=== PATIENT | female | born 2000 | race Caucasian/White ===

== ENCOUNTER 2023-04-16 05:30 | Inpatient (IN) ==
--- NOTE | 2023-03-26 08:54 | Anesthesiology Consultation ---
Date of Service March 26, 2023 Assessment & Plan (1) Encounter for pre-operative examination: - Per wool sacker on 03/26/2023: No known infectious disease contacts, current infectious disease symptoms in past 10 days or COVID positive test result in the past 90 days. Chart Review Chart Review: entry level sales representative initiated History Surgery Operation Date: 04/16/23 07:30 Proposed Procedures p Section (Delivery of Baby Through Abdominal Incision) - Edith Dill MD, FACOG s with Bilateral Tubal Ligation - Edith Dill MD, FACOG Height/Weight Height: 5 ft 3 in Weight: 66.224 kg Allergies Allergy/AdvReac Type Severity Reaction Status Date / Time adhesive tape Allergy Unknown skin Verified 03/26/23 08:39 irritation narcotics AdvReac Unknown N/V Uncoded 03/26/23 08:33 Medications Home Medications Medication Instructions Recorded Confirmed Last Taken cholecalciferol (vitamin D3) 125 125 mcg PO DAILY 04/17/20 03/26/23 Unknown mcg (5,000 unit) tablet cyanocobalamin (vitamin B-12) 500 500 mcg PO DAILY #30 tabs 01/17/22 03/26/23 Unknown mcg tablet prenat.vits,kiera,[id number] 1 tab PO DAILY 09/24/22 03/26/23 Unknown fluticasone propionate 50 1 spray intranasal DAILY PRN 01/01/23 03/26/23 Unknown mcg/actuation nasal Allergy Symptoms spray,suspension (Flonase Allergy Relief) breast pump #1 ea 02/10/23 03/25/23 Unknown breast pump #1 ea 02/16/23 03/25/23 Unknown breast pump #1 ea 02/20/23 03/25/23 Unknown aspirin 81 mg capsule 81 mg PO QAM 03/26/23 03/26/23 Unknown Past Medical History Medical History Goiter diffuse History of COVID-2020- loss of taste and smell; resolved History of lumbar puncture History of palpitations > 6 mos ago; thyroid levels were elevated; resolved History of pre-eclampsia Hx of Graves' disease Learning disability Migraine without aura Multiple sclerosis Nausea and vomiting after administration of anesthetic agent n/v after epidural w/ last Past Family History Family History Aunt Lupus Grandmother (Maternal) Kidney disease Grandfather (Maternal) Kidney disease Denies family history of Ovarian cancer Breast cancer Colorectal cancer Past Surgical History Surgical History History of tonsillectomy and adenoidectomy S/P section Social History Smoking Status: Never smoker Do You Dip or Chew Tobacco: No Hx Alcohol Use: No Hx Substance Use: No substance use type: does not use Lab Results Anesthesia Preop Results Results Anesthesia Widget: Hgb 11.6 g/dl (12.0-16.0) L 01/29/23 Hct 33.2 % (37.0-47.0) L 01/29/23 TSH 0.633 uIu/ml (0.300-4.500) 03/17/23 Free T4 1.05 ng/dl (0.61-1.60) 03/17/23 Urine Color Yellow 01/29/23 Urine Appearance Cloudy (Clear) A 01/29/23 Urine pH 8.0 (4.5-7.5) H 01/29/23 Urine Specific [place] 1.009 (1.000-1.030) 01/29/23 Urine Protein Negative (Negative) 01/29/23 Urine Glucose (UA) Negative (Negative) 01/29/23 Urine Ketones Negative (Negative) 01/29/23 Urine Blood Trace (Negative) H 01/29/23 Urine Nitrite Negative (Negative) 01/29/23 Urine Bilirubin Negative (Negative) 01/29/23 Urine Urobilinogen Negative (Negative) 01/29/23 Urine Leukocyte Esterase Negative (Negative) 01/29/23 Urine WBC (Auto) 1-5 /hpf (0-5) 01/29/23 Urine RBC (Auto) 5-10 /hpf (0-4) H 01/29/23 Urine Hyaline Casts (Auto) 0 /lpf (0-5) 01/29/23 Urine Epithelial Cells (Auto) >30 /lpf (0-5) H 01/29/23 Urine Bacteria (Auto) Negative (Negative) 01/29/23
--- NOTE | 2023-04-15 09:40 | History & Physical Report ---
Date of Service April 15, 2023 Assessment & Plan (1) 39 weeks gestation of : (2) Previous delivery affecting , antepartum: (3) Encounter for sterilization: Plan Will admit for planned c/s on 04/16/23. Consent reviewed and signed. Reviewed tubal and risks, specifically regret and desires to proceed. plan labs in am of admission. History of Present Illness Chief Complaint: planned c/s and tubal Primary Care Provider: Elizabeth Dumont 22yo at 39wks ega on day of admission for planned repeat c/s and desires tubal. Denies rom, vb. +FM. No ctx. Has wanted to have tubal and identifies her medical problems as issue for further pregnancies.Sure she wants to proceed and aware of regret at risk, wants distal salpingectomies for cancer risk reduction as form of tubal. PNC c/b 1. MS 2. Prior c/s 3. Graves disease PNL rh pos, ri, gbs neg Allergies Allergy/AdvReac Type Severity Reaction Status Date / Time adhesive tape Allergy Unknown skin Verified 04/15/23 08:55 irritation narcotics AdvReac Unknown N/V Uncoded 04/15/23 08:55 Home Medications Medication Instructions Recorded Confirmed Type cholecalciferol (vitamin D3) 125 125 mcg PO DAILY 04/17/20 04/15/23 History mcg (5,000 unit) tablet cyanocobalamin (vitamin B-12) 500 500 mcg PO DAILY #30 tabs 01/17/22 04/15/23 Rx mcg tablet prenat.vits,kiera,[id number]-[id number]-[id number] 1 tab PO DAILY 09/24/22 04/15/23 History fluticasone propionate 50 1 spray intranasal DAILY PRN 01/01/23 04/15/23 History mcg/actuation nasal Allergy Symptoms spray,suspension (Flonase Allergy Relief) breast pump #1 ea 02/16/23 04/15/23 Rx aspirin 81 mg capsule 81 mg PO QAM 03/26/23 04/15/23 History Patient History Medical History Goiter diffuse History of COVID-19 History of lumbar puncture History of palpitations History of pre-eclampsia Hx of Graves' disease Learning disability Migraine without aura Multiple sclerosis Nausea and vomiting after administration of anesthetic agent Surgical History History of tonsillectomy and adenoidectomy S/P section Family History Aunt Lupus Grandmother (Maternal) Kidney disease Grandfather (Maternal) Kidney disease Denies family history of Ovarian cancer Breast cancer Colorectal cancer Social History Smoking Status: Never smoker Second Hand Exposure: Yes (boyfriend smokes); Do You Dip or Chew Tobacco: No; Hx Alcohol Use: No Hx Substance Use: No Preferred Language: Occitan Communication Ability: Effective 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 current occupational status: employed current occupation: [employer] Feels Safe at Home: Yes Assistive Devices: None Review of Systems as per Subjective / HPI Physical Exam Constitutional: WD/WN, vitals as above Respiratory: normal respiratory effort, lungs clear to auscultation Cardiovascular: Rate/Rhythm: regular rate and regular rhythm Gastrointestinal (Abdomen): soft gravid nt fhts 135 Musculoskeletal: no edema nontender calves Neurologic: grossly normal Psychiatric: A+Ox3, euthymic affect Coding Level of Care Code None Diagnoses 39 weeks gestation of Z3A.39 Previous delivery affecting , antepartum O34.219 Encounter for sterilization Z30.2
[2023-04-16] MEDS ORDERED: LACTATED RINGER'S 1,000 ML IV SCH ×2 (05:45→18:30)
[2023-04-16] MEDS ORDERED: ceFAZolin 2000MG 2,000 MG/15 ML SYR IV SCH (06:00)
[2023-04-16] MEDS ORDERED: CITRIC ACID/SODIUM CITRATE 15 ML UDC PO SCH (06:00)
[2023-04-16 06:07] LABS: Basophils # (auto) 0.04 K/uL (0.00-0.20); Basophils % (auto) 0.5 %; Eosinophils # (auto) 0.11 K/uL (0.00-0.50); Eosinophils % (auto) 1.4 %; Hematocrit (blood only) 32.7 % (37.0-47.0); Hemoglobin 11.2 g/dl (12.0-16.0); Immature Granulocytes # (auto) 0.04 K/uL (0.01-0.20); Immature Granulocytes % (auto) 0.5 %; Lymphocytes # (auto) 1.27 K/uL (1.20-3.40); Lymphocytes % (auto) 16.1 %; Mean Corpuscular Hgb Conc 34.3 g/dL (32.0-36.0); Mean Corpuscular Volume 75.9 fL (80.0-100.0); Mean Platelet Volume 11.9 fL (9.4-12.4); Monocytes # (auto) 0.66 K/uL (0.11-0.59); Monocytes % (auto) 8.4 %; Neutrophils # (auto) 5.76 K/uL (1.40-6.50); Neutrophils % (auto) 73.1 %; Platelet Count 202 K/uL (130-400); RDW Coefficient of Variation 12.5 % (11.5-14.5); RDW Standard Deviation 34.3 fL (36.4-46.3); Red Blood Count 4.31 M/uL (4.20-5.40); White Blood Count 7.88 K/ul (4.8-10.8)
[2023-04-16] MEDS ORDERED: fentaNYL citrate PF 100 MCG/2 ML VIAL ONE (06:44)
[2023-04-16] MEDS ORDERED: MoRPHine SULFATE PF 1 MG/ML 10 ML AMP/VIAL ONE (06:44)
[2023-04-16] MEDS ORDERED: LIDOCAINE 2%/EPINEPHRINE 1:200,000 20 ML PF EPI STA (06:50)
[2023-04-16] MEDS ORDERED: SODIUM CHLORIDE 0.9% PF INJ 10 ML VIAL EPI STA (06:50)
[2023-04-16] MEDS ORDERED: NALOXONE HCL 1 MG in SODIUM CHLORIDE 0.9% 1,000 ML IV PRN ×2 (06:50→08:09)
[2023-04-16] MEDS ORDERED: NALBUPHINE HCL INJ 10 MG/ML AMP IV PRN ×2 (06:50→08:09)
[2023-04-16] MEDS ORDERED: NALOXONE HCL 0.4 MG/1 ML VIAL/CARP IV PRN ×2 (06:50→08:09)
[2023-04-16] MEDS ORDERED: ePHEDrine sulfate 50 MG/ML AMP IV PRN ×3 (06:50→08:24)
[2023-04-16] MEDS ORDERED: ROPIVACAINE 0.5% PF 5 MG/ML 20 ML VIAL EPI PRN (06:50)
[2023-04-16] MEDS ORDERED: diphenhydrAMINE 50 MG/ML VIAL IV PRN ×2 (06:50→08:09)
[2023-04-16] MEDS ORDERED: LIDOCAINE 2%/EPINEPHRINE 1:200,000 20 ML PF ONE (06:54)
--- NOTE | 2023-04-16 07:24 | History & Physical Bridge Note ---
Date of Service April 16, 2023 History & Physical Bridge Note I have examined the patient, reviewed the History & Physical and in the interval since the performance of the History & Physical I have noted the following changes of clinical significance: no changes noted
[2023-04-16] MEDS ORDERED: OXYTOCIN 10 UNITS/ML VIAL ONE (07:54)
[2023-04-16] MEDS ORDERED: LACTATED RINGER'S 500 ML IV PRN (08:09)
[2023-04-16] MEDS ORDERED: MoRPHine SULFATE PF 1 MG/ML 10 ML AMP/VIAL EPI ONE (08:09)
[2023-04-16] MEDS ORDERED: NALOXONE HCL 0.08 MG in SYRINGE 1.8 ML IV PRN (08:14)
[2023-04-16] MEDS ORDERED: ONDANSETRON INJ 2 MG/ML 2 ML VIAL ONE (08:14)
[2023-04-16] MEDS ORDERED: DC INTRASPINAL MORPHINE SCH (08:15)
[2023-04-16] MEDS ORDERED: SODIUM CHLORIDE 0.9% 1,000 ML IV SCH (08:15)
[2023-04-16] MEDS ORDERED: NO NARCOTICS OR SEDATIVES SCH (08:15)
[2023-04-16] MEDS ORDERED: KETOROLAC 30 MG/ML VIAL IV PRN ×2 (08:24→11:32)
[2023-04-16] MEDS ORDERED: HYDROmorphone INJ 2 MG/ML SYR/VIAL IV PRN (08:24)
[2023-04-16] MEDS ORDERED: ATROPINE SULFATE 0.1 MG/ML 10ML SYR IV PRN (08:24)
[2023-04-16] MEDS ORDERED: PROMETHAZINE HCL 12.5 MG in SODIUM CHLORIDE 0.9% 50 ML IV PRN (08:24)
--- NOTE | 2023-04-16 08:35 | Operative Report ---
PG Post Operative Report Pre & Post Diagnosis Operation Date: 04/16/23 07:30 Pre-Op Diagnosis: 39 week intrauterine . Prior section. Desires repeat section. Desires sterilization. Post-Op Diagnosis: 39 week intrauterine . Prior section. Desires repeat section. Desires sterilization. I identified the patient and participated in the time-out.: Yes Procedure Operation Date: 04/16/23 07:30 Actual Procedures 1. Repeat Low Transverse Section 2. Bilateral Tubal Ligation via distal salpingectomies Surgeon Edith Dill MD, FACOG Social Media Marketing Specialist Kaila Estimated Blood Loss 400 Findings Consistent with Post-Op Diagnosis (viable female infant. apgars pending. normal uterus, tubes and ovaries bilaterally. ) Fluids 500 Specimens cord blood bilateral fallopian tubes Drains benavides Anesthesia Type Labor Epidural Complications none Disposition Accompanied Patient To Recovery: No Disposition: L&D Indications 22yo for planned repeat c/s and also desires permanent sterilization. She is 39wks ega. Description of Procedure The patient was taken to the operating room and identified. After adequate anesthesia was obtained, she was placed in the supine position with a leftward tilt on the operating table and prepped and draped in the usual sterile fashion. A benavides catheter had already been placed. The knife was used to create a Pfannensteil skin incision that was carried down to the underlying layer of fascia. The fascia was nicked in the midline and this opening was extended laterally using Stinson scissors. Chitra clamps were placed on the superior and inferior aspect of the fascial incision tenting it upward and the underlying rectus muscles were dissected off the overlying fascia both sharply and bluntly using Stinson scissors. The rectus muscles were bluntly in the midline. The peritoneal cavity was bluntly entered into. This opening was stretched. The bladder blade was placed. The vesicouterine peritoneum was elevated and opened up into and the bladder flap was created digitally and bladder blade was replaced. The knife was used to create a hysterotomy and this opening was stre tched. The operators hand was placed through the hysterotomy and the bladder blade was removed. The head was elevated and flexed and with fundal pressure the head was delivered. The shoulders and body were rapidly delivered. The cord was clamped and cut and the 's mouth and nares were bulb suction. The infant was handed off to the awaiting pediatricians. Cord blood was obtained. The placenta was manually expressed. The uterus was exteriorized and cleared of all clots and debris. Dilute IV Pitocin was begun. The uterine tone was improving. The hysterotomy was closed in a running interlocking fashion using 0 Vicryl and additional figure of eight sutures of 0 Vicryl were placed at right of hysterotomy for excellent hemostasis. The hysterotomy was hemostatic. The fallopian tubes on each side were elevated using a virgilio clamp and with the ligasure device the entirety of each tube was coagulated and cut along the mesosalpinx and then transected at each cornua. The sites were hemostatic. The pelvis was suctioned. The uterus was returned to the abdomen. The gutters were cleared of all clots and debris. The hysterotomy was reinspected and noted to be hemostatic. The salpingectomy sites were hemostatic. The fascia was then closed in running fashion using 0 Vicryl. The subcutaneous fat was copiously irrigated and reapproximated using 2-0 chromic. The skin was closed in a subcuticular fashion using 4-0 Vicryl. Of note some of the keloid areas of prior scarring were removed with knife and scissors. At this point the procedure was terminated. The patient was transferred to the recovery room in stable condition. All sponge, lap and needle counts are correct x2. I attest to the content of the Intraoperative Record and any orders documented therein. Any exceptions are noted below. OB Procedure Charges [id number] Add on Tubal for C/S
[2023-04-16] MEDS ORDERED: HYDROCORTISONE ACETATE 25 MG SUPP PR PRN (08:48)
[2023-04-16] MEDS ORDERED: SENNA 8.6 MG TAB PO PRN (08:48)
[2023-04-16] MEDS ORDERED: DIPHTHERIA/TETANUS/PERTUSSIS Vaccine (Tdap, Age 7+yrs) 0.5mL SYR/VL IM ONE (08:48)
[2023-04-16] MEDS ORDERED: MAGNESIUM HYDROXIDE SUSP 30 ML UDC PO PRN (08:48)
[2023-04-16] MEDS ORDERED: FLUTICASONE PROPIONATE NA SPR 16 GM BTL PRN (08:48)
[2023-04-16] MEDS ORDERED: BENZOCAINE 20% SPRY 85 APPLN/85 GM CAN EXT PRN (08:48)
[2023-04-16] MEDS ORDERED: ONDANSETRON INJ 2 MG/ML 2 ML VIAL IV PRN (08:48)
[2023-04-16] MEDS ORDERED: OXYTOCIN 20 UNITS in LACTATED RINGER'S 1,000 ML IV SCH (09:00)
--- NOTE | 2023-04-16 10:52 | Anesthesiology Progress Note ---
Date of Service April 16, 2023 Anesthesia Post Procedure Vital Signs Vital Signs: Temp Pulse Resp BP Pulse Ox 04/16/23 09:45 36.5 C 17 04/16/23 09:08 36.4 C L 17 04/16/23 08:38 36.5 C 16 04/16/23 05:44 36.9 C 18 04/16/23 10:43 47 L 98 04/16/23 10:40 50 L 114/70 04/16/23 10:38 51 L 98 04/16/23 10:33 51 L 98 04/16/23 10:28 47 L 99 04/16/23 10:23 47 L 98 04/16/23 10:18 52 L 98 04/16/23 10:13 53 L 98 04/16/23 10:10 51 L 110/71 04/16/23 10:08 47 L 98 04/16/23 10:03 60 100 04/16/23 09:58 56 L 99 04/16/23 09:53 55 L 99 04/16/23 09:48 70 99 04/16/23 09:43 61 99 04/16/23 09:40 65 130/63 04/16/23 09:38 57 L 98 04/16/23 09:33 56 L 99 04/16/23 09:29 62 112/55 L 04/16/23 09:28 59 L 99 04/16/23 09:23 68 99 04/16/23 09:18 72 100 04/16/23 09:19 72 118/70 04/16/23 09:13 61 100 04/16/23 09:08 72 100 04/16/23 09:09 87 119/83 04/16/23 09:03 73 99 04/16/23 08:58 83 100 04/16/23 08:53 64 100 04/16/23 08:49 81 121/71 04/16/23 08:48 72 99 04/16/23 08:37 75 125/57 L 04/16/23 07:38 90 129/78 04/16/23 07:34 90 100 04/16/23 07:35 98 H 129/82 04/16/23 07:32 75 130/78 04/16/23 07:29 99 04/16/23 07:29 73 04/16/23 07:29 58 L 132/77 04/16/23 07:26 68 132/78 04/16/23 07:24 89 100 04/16/23 07:20 64 143/75 H 04/16/23 07:19 76 100 04/16/23 07:09 74 133/83 04/16/23 05:39 78 133/79 Notes Mental Status: alert / awake / arousable Patient Amnestic to Procedure: Yes Nausea / Vomiting: adequately controlled Pain: adequately controlled Airway Patency, RR, SpO2: stable & adequate BP & HR: stable & adequate Hydration State: stable & adequate Neuraxial Anesthesia: was administered and sensory block is resolving Anesthetic Complications: no major complications apparent
[2023-04-16] MEDS: SIMETHICONE 80 MG CHEW PO SCH ×3 (16:56→20:30)
[2023-04-16] MEDS: CHOLECALCIFEROL 5,000 UNITS 125 MCG TAB PO SCH (19:44)
[2023-04-16] MEDS: CYANOCOBALAMIN (B-12) 500 MCG TABLET PO SCH (19:44)
[2023-04-16] MEDS: DOCUSATE SODIUM 100 MG CAP PO SCH (20:30)
[2023-04-16] MEDS: KETOROLAC 30 MG/ML VIAL IV PRN (20:30)
[2023-04-17] MEDS: KETOROLAC 30 MG/ML VIAL IV PRN (02:08)
[2023-04-17] MEDS ORDERED: ZOLPIDEM TARTRATE 5 MG TAB PO PRN (02:10)
[2023-04-17] MEDS ORDERED: diphenhydrAMINE 50 MG/ML VIAL IV PRN (02:10)
[2023-04-17] MEDS ORDERED: PROMETHAZINE HCL 25 MG in SODIUM CHLORIDE 0.9% 50 ML IV PRN (02:10)
[2023-04-17] MEDS ORDERED: diphenhydrAMINE Capsule 25 MG CAP PO PRN (02:10)
[2023-04-17] MEDS ORDERED: oxyCODONE/ACETAMINOPHEN 5mg/325mg TAB PO PRN (02:10)
[2023-04-17 06:34] LABS: Basophils # (auto) 0.05 K/uL (0.00-0.20); Basophils % (auto) 0.6 %; Eosinophils # (auto) 0.14 K/uL (0.00-0.50); Eosinophils % (auto) 1.6 %; Hematocrit (blood only) 29.4 % (37.0-47.0); Hemoglobin 9.8 g/dl (12.0-16.0); Immature Granulocytes # (auto) 0.05 K/uL (0.01-0.20); Immature Granulocytes % (auto) 0.6 %; Lymphocytes # (auto) 1.26 K/uL (1.20-3.40); Mean Corpuscular Hemoglobin 25.8 pg (25.0-34.0); Mean Corpuscular Hgb Conc 33.3 g/dL (32.0-36.0); Mean Corpuscular Volume 77.4 fL (80.0-100.0); Mean Platelet Volume 12.2 fL (9.4-12.4); Monocytes # (auto) 0.75 K/uL (0.11-0.59); Monocytes % (auto) 8.3 %; Neutrophils # (auto) 6.77 K/uL (1.40-6.50); Neutrophils % (auto) 74.9 %; Platelet Count 151 K/uL (130-400); RDW Coefficient of Variation 12.6 % (11.5-14.5); RDW Standard Deviation 35.2 fL (36.4-46.3); White Blood Count 9.02 K/ul (4.8-10.8)
--- NOTE | 2023-04-17 06:40 | Obstetrical Progress Note ---
Date of Service April 17, 2023 Assessment & Plan (1) S/P section: Plan: encourage ambulation pain control Admission and Anticipated Discharge Date Admission Date: April 16, 2023 Supervising Physician Co-Signing Physician Notes Resident Physician Supervision Note: I was present with Dr. Payan during the history and exam. I discussed the case with the resident and agree with the findings and plan as documented in the note. Any exceptions or clarifications are listed here: stable routine care. eating, benavides out this am. po pain meds. +flatus. abd soft ff 2 down nt, incision c/d/i with bruising, ext nt calves. pod #1 s/p c/s. hgb noted. routine care. adv diet. await void. po pain meds. Documented By: Edith Dill MD, FACOG Subjective 22 yo post day 1 s/p Ambulation: ambulating normally Voiding: no voiding problems Passing Gas:: Yes Diet Tolerance:: regular diet Lochia:: Small Feeding Type:: bottle feeding Current Pain Level: minimal Resting comfortably this AM. Some itching after morpine given yesterday. Denies CORONA, CP, SOB, N/V/D, LE swelling/pain Review of Systems Review of Systems: reviewed, per HPI Physical Exam Physical Exam: General: patient resting comfortably, NAD, non-toxic in appearance, AA&O x 4, answers questions appropriately. Skin: warm, dry, intact HEENT: NC/AT, anicteric sclera, conjunctiva without injection, moist mucus membranes. Heart: +S1/S2, regular, no m/r/g Lungs: equal air entry bilaterally, no rales/rhonchi/wheezes Abd: +BS, soft, NT/ND, uterine fundus firm at umbilicus, caesarean incision C/D/I Ext: warm, no clubbing/cyanosis or edema, Quique's neg Neuro: nonfocal, patient AA&O x 4, speech intact, no facial droop, moving all extremities on command. Results & Data Vital Signs (Past 12 Hours) Vital Signs Temp Pulse Resp BP Pulse Ox O2 Del Method 04/17/23 03:45 36.7 C 56 L 16 121/75 99 Room Air 04/17/23 02:15 18 99 04/17/23 01:57 16 97 09/01/23 01:01 16 97 04/17/23 00:15 Room Air 04/17/23 00:15 36.7 C 68 18 133/82 97 Room Air 04/17/23 00:15 18 97 04/16/23 23:00 16 96 04/16/23 22:33 20 96 04/16/23 21:45 20 97 04/16/23 20:15 20 100 04/16/23 19:45 20 100 04/16/23 18:45 20 100 04/16/23 18:57 37.1 C 53 L 18 121/74 100 Room Air Laboratory Results 04/17/23 04/16/23 Range/Units 06:06 05:49 WBC 9.02 (4.8-10.8) K/ul RBC 3.80 L (4.20-5.40) M/uL Hgb 9.8 L (12.0-16.0) g/dl Hct 29.4 L (37.0-47.0) % MCV 77.4 L (80.0-100.0) fL MCH 25.8 (25.0-34.0) pg MCHC 33.3 (32.0-36.0) g/dL RDW Std Deviation 35.2 L (36.4-46.3) fL RDW Coeff of [place] 12.6 (11.5-14.5) % Plt Count 151 (130-400) K/uL MPV 12.2 (9.4-12.4) fL Immature Gran % (Auto) 0.6 % Neut % (Auto) 74.9 % Lymph % (Auto) 14.0 % [place] % (Auto) 8.3 % Eos % (Auto) 1.6 % Baso % (Auto) 0.6 % Neut # (Auto) 6.77 H (1.40-6.50) K/uL Lymph # (Auto) 1.26 (1.20-3.40) K/uL [place] # (Auto) 0.75 H (0.11-0.59) K/uL Eos # (Auto) 0.14 (0.00-0.50) K/uL Baso # (Auto) 0.05 (0.00-0.20) K/uL Immature Gran # (Auto) 0.05 (0.01-0.20) K/uL Blood Type A Positive Antibody Screen NEGATIVE Resident Activity Tracking Resident Involvement: Resident Care Provided Care Provided: Adult Hospital Medicine
[2023-04-17] MEDS: CYANOCOBALAMIN (B-12) 500 MCG TABLET PO SCH (08:07)
[2023-04-17] MEDS: PRENATAL VITAMIN 1 TAB PO SCH (08:07)
[2023-04-17] MEDS: IBUPROFEN 600 MG TAB PO PRN ×4 (08:07→23:20)
[2023-04-17] MEDS: DOCUSATE SODIUM 100 MG CAP PO SCH ×2 (08:07→20:19)
[2023-04-17] MEDS: FERROUS SULFATE 325 MG TAB PO SCH (08:07)
[2023-04-17] MEDS: SIMETHICONE 80 MG CHEW PO SCH ×4 (08:07→20:19)
[2023-04-17] MEDS: CHOLECALCIFEROL 5,000 UNITS 125 MCG TAB PO SCH (08:08)
[2023-04-17] MEDS: ACETAMINOPHEN 325 MG TAB PO PRN ×4 (08:08→23:20)
--- NOTE | 2023-04-18 06:50 | Obstetrical Progress Note ---
Date of Service April 18, 2023 Assessment & Plan (1) S/P section: Plan: encourage ambulation pain control DC today Admission and Anticipated Discharge Date Admission Date: April 16, 2023 Supervising Physician Co-Signing Physician Notes Resident Physician Supervision Note: I interviewed and examined the patient. Discussed with Dr. Payan and agree with findings and plan as documented in the note. Any exceptions or clarifications are listed here: Doing well. Pod 2. Desires d/c. Documented By: Ginette Becker MD, FACOG Subjective 22 yo post day 2 s/p Ambulation: ambulating normally Voiding: no voiding problems Passing Gas:: Yes Diet Tolerance:: regular diet Lochia:: Small Feeding Type:: bottle feeding Current Pain Level: minimal Resting comfortably this AM. Denies CORONA, CP, SOB, N/V/D, LE swelling/pain Review of Systems Review of Systems: reviewed, per HPI Physical Exam Physical Exam: General: patient resting comfortably, NAD, non-toxic in appearance, AA&O x 4, answers questions appropriately. Skin: warm, dry, intact HEENT: NC/AT, anicteric sclera, conjunctiva without injection, moist mucus membranes. Heart: +S1/S2, regular, no m/r/g Lungs: equal air entry bilaterally, no rales/rhonchi/wheezes Abd: +BS, soft, NT/ND, uterine fundus firm at umbilicus, caesarean incision C/D/I Ext: warm, no clubbing/cyanosis or edema, Quique's neg Neuro: nonfocal, patient AA&O x 4, speech intact, no facial droop, moving all extremities on command. Results & Data Vital Signs (Past 12 Hours) Vital Signs Temp Pulse Resp BP Pulse Ox O2 Del Method 04/17/23 23:19 36.9 C 74 18 125/72 96 Room Air 04/17/23 19:58 36.7 C 74 18 144/78 H 99 Room Air Resident Activity Tracking Resident Involvement: Resident Care Provided Care Provided: Adult Hospital Medicine
[2023-04-18 07:10] LABS: Hematocrit (blood only) 31.8 % (37.0-47.0); Hemoglobin 10.4 g/dl (12.0-16.0)
[2023-04-18] MEDS: IBUPROFEN 600 MG TAB PO PRN ×2 (07:15→11:18)
[2023-04-18] MEDS: ACETAMINOPHEN 325 MG TAB PO PRN ×2 (07:15→11:18)
[2023-04-18] MEDS ORDERED: bisacodyL 10 MG SUPP PR PRN (08:36)
[2023-04-18] MEDS: FERROUS SULFATE 325 MG TAB PO SCH (09:29)
[2023-04-18] MEDS: DOCUSATE SODIUM 100 MG CAP PO SCH (09:29)
[2023-04-18] MEDS: PRENATAL VITAMIN 1 TAB PO SCH (09:29)
[2023-04-18] MEDS: CYANOCOBALAMIN (B-12) 500 MCG TABLET PO SCH (09:30)
[2023-04-18] MEDS: CHOLECALCIFEROL 5,000 UNITS 125 MCG TAB PO SCH (09:30)
[2023-04-18] MEDS: SIMETHICONE 80 MG CHEW PO SCH (09:30)
--- NOTE | 2023-04-21 11:07 | Discharge Summary ---
Date of Service Date of Admission: 04/16/23 Date of discharge: April 18, 2023 Admission HPI Per Admitting Provider 22yo at 39wks ega on day of admission for planned repeat c/s and desires tubal. Denies rom, vb. +FM. No ctx. Has wanted to have tubal and identifies her medical problems as issue for further pregnancies.Sure she wants to proceed and aware of regret at risk, wants distal salpingectomies for cancer risk reduction as form of tubal. PNC c/b 1. MS 2. Prior c/s 3. Graves disease PNL rh pos, ri, gbs neg Discharge Data Consultations 04/16/23 05:38 Consult Anesthesiology Stat Procedures Performed Operation Date: 04/16/23 07:30 Actual Procedures p Repeat Low Transverse Section (Delivery of Baby Through Abdominal Incision)delivery of live female child at 0756(Bilateral) - Edith Dill MD, FACOG s Bilateral Tubal Ligation(Bilateral) via distal salpingectomies - [facility] (1) S/P section: (2) Encounter for sterilization: Plan The patient underwent the above stated procedure without incident and her postoperative course and recovery was uncomplicated. On her postoperative day #2 she was tolerating a regular diet, voiding spontaneously, ambulating without problem and was using oral meds for adequate pain control. Her postoperative hemoglobin was 10.4. She was given written and verbal discharge instructions and told to followup in office at 6wks. She was given appropriate pain medicine prescriptions. Coding Level of Care Code None Diagnoses S/P section Z98.891 Encounter for sterilization Z30.2
== END 2023-04-18 12:45 | disposition home or self-care (01) | DRG 785 ==
LOC: 4S1 05:30 → EDSTATUS 07:30 → 4E2 12:33
PROC: M.PPTLD (2023-04-16 07:30)